=== PATIENT | female | born 1985 | race Caucasian/White ===

== ENCOUNTER 2017-04-22 12:40 | Emergency (ER) | payer MEDICAID ==
[~2017-04-22] VITALS: Ht 152.4 cm; Wt 64.0 kg
[~2017-04-22 12:40] MED LIST: LAC PO; LEVAQUIN750 MG PO; NORCO1 TA2 PO
[2017-04-22 15:57] VITALS: BP 116/67
== END 2017-04-22 15:57 | disposition home or self-care (01) ==
LOC: ED 12:40
DX: B95.62 Methicillin resistant Staphylococcus aureus infection as the cause of diseases classified elsewhere (principal); M79.605 Pain in left leg; M79.89 Other specified soft tissue disorders
CPT/HCPCS: 90715

== ENCOUNTER 2017-06-10 19:34 | Emergency (ER) | payer MEDICAID ==
[2017-06-10 23:29] VITALS: BP 118/77
== END 2017-06-10 23:29 | disposition home or self-care (01) ==
LOC: ED 19:34
DX: R22.42 Localized swelling, mass and lump, left lower limb (principal); M79.605 Pain in left leg

== ENCOUNTER 2018-03-06 21:55 | Emergency (ER) | payer MEDICAID ==
[~2018-03-06] VITALS: Ht 157.5 cm; Wt 62.7 kg
[2018-03-06 21:58] VITALS: Ht 157.5 cm; Wt 62.7 kg
[2018-03-07 00:33] VITALS: BP 122/65
== END 2018-03-07 00:33 | disposition home or self-care (01) ==
LOC: ED 21:55
DX: J68.9 Unspecified respiratory condition due to chemicals, gases, fumes and vapors (principal); R51 Headache; M54.6 Pain in thoracic spine
CPT/HCPCS: J1885; J7613

== ENCOUNTER 2018-08-31 17:40 | Emergency (ER) | payer MEDICAID ==
[~2018-08-31] VITALS: Ht 152.4 cm; Wt 67.6 kg
[2018-08-31 18:06] VITALS: BP 124/67; Ht 152.4 cm; Wt 67.6 kg
== END 2018-08-31 20:06 | disposition home or self-care (01) ==
LOC: ED 17:40
DX: G56.02 Carpal tunnel syndrome, left upper limb (principal); M77.12 Lateral epicondylitis, left elbow